=== PATIENT | female | born 1995 | race Caucasian/White ===

== ENCOUNTER 2019-09-20 14:02 | Emergency (ER) | payer OTHER, SELFPAY ==
[2019-09-20 14:04] VITALS: BP 148/81; PULSE 95; RESP 20; TEMP 36.7; O2SAT 100
--- NOTE | 2019-09-20 14:36 | ED.ABDPAIN ---
HPI - Abdominal Pain General Chief Complaint: Abdominal Pain Stated Complaint: abdominal pain Time Seen by Provider: 09/20/19 14:36 Source: patient and RN notes reviewed Mode of arrival: ambulatory Limitations: no limitations History of Present Illness HPI narrative: 23-year-old female presents with concern for right lower abdominal pain that is been on and off since yesterday. She denies nausea, vomiting, diarrhea. Reports her last bowel movement was yesterday, and was normal. Reports her last menstrual period was approximately 1 week ago, however she uses NuvaRing and typically has intermittent spotting after she places any new ring. She reports intermittent menstrual spotting. MD elicited complaint: abdominal pain Related Data Home Medications Medication Instructions Recorded Confirmed etonogestrel-ethinyl estradiol vag ring VAGINAL 09/20/19 [NuvaRing] Allergies Allergy/AdvReac Type Severity Reaction Status Date / Time No Known Allergies Allergy Verified 07/28/19 12:40 Review of Systems Review of Systems: Narrative: CONSTITUTIONAL: Denies malaise, chills, sweats, or fever. CARDIOVASCULAR: Denies chest pain, palpitations, or edema. RESPIRATORY: Denies cough or dyspnea. GASTROINTESTINAL: Reports right lower abdominal pain. Denies nausea, vomiting, diarrhea, bloody, or mucous stools. GENITOURINARY: Denies dysuria or hematuria. SKIN: Denies rash or itching. MUSCULOSKELETAL: Denies back pain, joint pain, or myalgia. NEUROLOGIC: Denies numbness, weakness, or headache. All systems reviewed & are unremarkable except as noted in HPI and below PMFSH Family History Family History (Updated 01/12/18 @ 10:10 by DOCTOR UNKNOWN) Mother Patient's mother is in good health Father Patient's father is in good health Sibling Patient's sister is in good health Patient's brother is in good health Social History Social History Smoking status: Never smoker Alcohol intake: never Comments At time of signature, agree with nursing past medical, surgical, social and family history. There is no relevant family history pertinent to the presenting complaint Exam Narrative: Exam Narrative: GENERAL: Well-appearing, well-nourished, and in no acute distress. HEAD: Normocephalic. EYES: PERRLA, conjunctivae clear. NECK: Supple. No lymphadenopathy CHEST: Clear to auscultation. No respiratory distress. HEART: Regular rate and rhythm. No murmur heard. Normal peripheral pulses. ABDOMEN: Soft, mild right lower quadrant tender upon palpation, obese, normal active bowel sounds, no palpable or pulsatile masses, no guarding. No CVA tenderness SKIN: Warm, dry, no rash. NEURO: Alert and oriented x3. PSYCH: Normal mood and affect Course Course Emergency Course: Discussed with patient limited diagnostic capability at the [facility], options of further evaluation in the emergency department. Through shared decision making patient decided to seek evaluation with her primary care provider. She understands reasons to go to the emergency department between now and her primary care provider appointment. Patient is aware of, understands and agrees to treatment plan. Anticipatory guidance given. Patient agrees to follow-up as directed and is aware of reasons to seek care at the emergency department. Portions of this record may have been created with voice recognition software Vital Signs Vital signs: Vital Signs Temperature 98.1 F 09/20/19 14:04 Pulse Rate 95 09/20/19 14:04 Respiratory Rate 20 09/20/19 14:04 Blood Pressure 148/81 H 09/20/19 14:04 Pulse Oximetry 100 09/20/19 14:04 Temperature 98.1 F 09/20/19 14:04 Pulse Rate 95 09/20/19 14:04 Respiratory Rate 20 09/20/19 14:04 Blood Pressure 148/81 H 09/20/19 14:04 Pulse Oximetry 100 09/20/19 14:04 Reviewed. Patient has been instructed to follow up with her primary care provider within the next week regarding her elevated blood pressure today.
== END 2019-09-20 15:07 | disposition home or self-care (01) ==
PROVIDERS: Emergency Provider Nurse Practitioner
DX: R10.31 Right lower quadrant pain (principal)
CPT/HCPCS: 81003; 81025; 99212; G0463

== ENCOUNTER 2019-09-25 14:01 | Emergency (ER) | payer OTHER, SELFPAY ==
[2019-09-25 14:13] VITALS: BP 132/80; PULSE 99; RESP 16; TEMP 36.3; O2SAT 99
--- NOTE | 2019-09-25 14:13 | ED.EAR ---
HPI - Ear Problem General Chief complaint: Ear Stated complaint: cough/fever Time Seen by Provider: 09/25/19 14:20 Source: patient and RN notes reviewed History of Present Illness HPI Narrative: Patient is a 23-year-old female that presents the urgent care with complaints of cough and fever. Patient states that the cough started Mateo and the fever started last night. Patient has been using DayQuil and NyQuil with little relief. Also reports of a sore throat intermittently. No other acute complaints. No acute distress noted. Patient read the plan of care. Related Data Home Medications Medication Instructions Recorded Confirmed etonogestrel-ethinyl estradiol vag ring VAGINAL 09/20/19 [NuvaRing] Allergies Allergy/AdvReac Type Severity Reaction Status Date / Time No Known Allergies Allergy Verified 09/25/19 14:11 Review of Systems Review of Systems: Narrative: CONSTITUTIONAL: Reports a fever EYES: Denies visual changes, redness, or discharge. ENT: Denies rhinorrhea, congestion, sore throat, or otalgia. CARDIOVASCULAR: Denies chest pain, palpitations, or edema. RESPIRATORY: Reports of cough GASTROINTESTINAL: Denies abdominal pain, nausea, vomiting, or diarrhea. GENITOURINARY: Denies dysuria or hematuria. SKIN: Denies rash or itching. MUSCULOSKELETAL: Denies back pain, joint pain, or myalgia. NEUROLOGIC: Denies headache, numbness, or weakness. All other systems reviewed are negative, except as documented in HPI. [facility] Family History Family History (Updated 01/12/18 @ 10:10 by DOCTOR UNKNOWN) Mother Patient's mother is in good health Father Patient's father is in good health Sibling Patient's sister is in good health Patient's brother is in good health Social History Social History Smoking status: Never smoker Alcohol intake: never Comments At the time of my signature, I reviewed and agree with the nursing past medical, surgical, social, and family history. There is no relevant family history pertinent to the patient complaint. Exam Narrative: Exam Narrative: GENERAL: This is a well-nourished, well-developed patient, appears fatigued and flushed HEAD: normocephalic, atraumatic. EYES: PERRL. Sclera clear/white. Vision is grossly intact. EARS: External ears normal, auditory canals clear and without drainage, TMs normal without perforation. Hearing grossly intact. NOSE: External nose normal with no obvious nasal discharge, nares without redness, no rhinorrhea. THROAT: Mucous membranes moist, posterior pharynx clear. Mild postnasal drainage NECK: Neck supple, non-tender without lymphadenopathy CARDIOVASCULAR: Regular rate and rhythm without murmurs, gallops, or rubs. RESPIRATORY: Clear to auscultation. Breath sounds equal bilaterally. No wheezes, rales, or rhonchi. SKIN: warm, intact with no suspicious lesions or rash, good texture and turgor. NEURO: awake, alert, and oriented to person, place and time. There were no obvious focal neurologic abnormalities. EXTREMITIES: No clubbing, cyanosis, or edema. Course Vital Signs Vital signs: Vital Signs Temperature 97.4 F L 09/25/19 14:13 Pulse Rate 99 09/25/19 14:13 Respiratory Rate 16 09/25/19 14:13 Blood Pressure 132/80 09/25/19 14:13 Pulse Oximetry 99 09/25/19 14:13 Temperature 97.4 F L 09/25/19 14:13 Pulse Rate 99 09/25/19 14:13 Respiratory Rate 16 09/25/19 14:13 Blood Pressure 132/80 09/25/19 14:13 Pulse Oximetry 99 09/25/19 14:13 Reviewed Medical Decision Making MDM Narrative Medical decision making narrative: Reviewed lab results with the patient. She is aware that flu swab was positive for influenza B. Strep swab was negative. Educated patient on culture we will call within 72 hours if culture is positive and antibiotics are necessary for strep. Complete Xofluza as prescribed. Make sure to eat and drink with the medication. Treat symptoms with [id number] medication such as Robitussin/De
== END 2019-09-25 14:42 | disposition home or self-care (01) ==
PROVIDERS: Emergency Provider Nurse Practitioner Family
DX: J11.1 Influenza due to unidentified influenza virus with other respiratory manifestations (principal)
CPT/HCPCS: 87081; 87804; 87880; 99213; G0463